=== PATIENT | male | born 1970 | race Caucasian/White ===

== ENCOUNTER 2024-01-29 16:00 | Outpatient (CLI) | payer BC | END 2024-01-29 16:01 | disposition home or self-care (01) | LOC: SLEEPLAB 16:00 | PROVIDERS: ATTEND Family Medicine | DX: G47.33 Obstructive sleep apnea (adult) (pediatric) (principal); G47.10 Hypersomnia, unspecified; G47.9 Sleep disorder, unspecified; R53.83 Other fatigue; R06.83 Snoring; G47.00 Insomnia, unspecified | CPT/HCPCS: 95800 ==

== ENCOUNTER 2025-05-09 22:48 | Emergency (ER) | payer BC | END 2025-05-10 00:05 | disposition home or self-care (01) | LOC: ERS 22:48 | DX: S93.401A Sprain of unspecified ligament of right ankle, initial encounter (principal); E78.00 Pure hypercholesterolemia, unspecified; Z79.899 Other long term (current) drug therapy; X50.1XXA Overexertion from prolonged static or awkward postures, initial encounter | CPT/HCPCS: 99283 ==